=== PATIENT | female | born 1975 | race Two or more races ===

== ENCOUNTER 2016-08-31 11:50 | Emergency (ER) | payer MEDICAID ==
[~2016-08-31] VITALS: Ht 165.1 cm; Wt 95.3 kg
[~2016-08-31 11:50] MED LIST: NAPR-591
[2016-08-31 12:57] VITALS: BP 117/57
[2016-08-31] MEDS ORDERED: KETOROLAC TROMETH 60MG/2ML VIAL IM ONE (13:15)
[2016-08-31] MEDS ORDERED: ONDANSETRON ODT 4 MG TAB PO ONE (13:15)
[2016-08-31] MEDS ORDERED: diphenhdrAMINE HCL 50 MG/1 ML VL IM ONE (13:15)
== END 2016-08-31 14:04 | disposition home or self-care (01) ==
LOC: ER 11:50
DX: G43.909 Migraine, unspecified, not intractable, without status migrainosus (principal); R42 Dizziness and giddiness; Z98.51 Tubal ligation status
CPT/HCPCS: 96372; 99284; J1200; J1885; Q0162

== ENCOUNTER 2020-09-13 19:35 | Emergency (ER) | payer MEDICAID ==
[~2020-09-13] VITALS: Ht 165.1 cm; Wt 99.8 kg
[2020-09-13] MEDS ORDERED: HYDROcodone-ACET 5/325MG TAB PO ONE (22:00)
[2020-09-13 23:00] VITALS: BP 110/63
== END 2020-09-14 00:07 | disposition home or self-care (01) ==
LOC: ER 19:38 → TELE 22:45 → UNDOADMIN 22:45 → ER 09-14 00:07
DX: S80.12XD Contusion of left lower leg, subsequent encounter (principal); W22.8XXD Striking against or struck by other objects, subsequent encounter
CPT/HCPCS: 73700; 93971

== ENCOUNTER 2022-04-19 18:35 | Emergency (ER) | payer MEDICAID ==
[~2022-04-19] VITALS: Ht 165.1 cm; Wt 107.3 kg
[2022-04-19 19:40] LABS: Basophils # (auto) 0.1 10 ^3/uL (0-0.2); Basophils % (auto) 0.9 % (0.0-2.0); Eosinophils # (auto) 0.3 10 ^3/uL (0-0.8); Eosinophils % (auto) 3.7 % (0.0-7.0); Hematocrit 44.1 % (36.0-46.0); Hemoglobin 14.9 g/dL (12.2-16.2); Lymphocytes # (auto) 2.3 10 ^3/uL (0.4-5.4); Lymphocytes % (auto) 29.8 % (10.0-50.0); Mean Corpuscular Hemoglobin 29.2 pg (28.0-32.0); Mean Corpuscular Hgb Conc. 33.7 g/dL (32.0-36.0); Mean Corpuscular Volume 86.7 fL (80.0-100.0); Monocytes # (auto) 0.4 10 ^3/uL (0-1.3); Monocytes % (auto) 5.4 % (0.0-12.0); Neutrophils # (auto) 4.6 10 ^3/uL (1.6-8.6); Neutrophils % (auto) 60.2 % (37.0-80.0); Nucleated Red Blood Cells % 0.1 %; Red Blood Cells 5.09 10^6/uL (4.0-5.20); Red Cell Distribution Width 14.1 % (11.8-14.3); White Blood Cell 7.7 10^3/uL (4.4-10.8)
[2022-04-19] MEDS ORDERED: MECLIZINE HCL 25 MG TAB PO ONE (19:45)
[2022-04-19 19:46] LABS: Albumin 3.5 g/dL (3.4-5.0); BUN/Creatinine Ratio 17.7; Calcium 8.8 mg/dL (8.5-10.1); Potassium 4.2 mmol/L (3.5-5.1)
[2022-04-19 19:49] LABS: Bilirubin, Total 0.3 mg/dL (0.2-1.0); Total Protein 7.3 g/dL (6.4-8.2)
[2022-04-19 22:03] LABS: Urine WBC None Seen /hpf (0 - 5)
[2022-04-19 22:13] LABS: Urine Bacteria NONE SEEN /hpf (None Seen); Urine Blood Negative /uL (Negative); Urine Specific Gravity 1.021 (1.001-1.035)
[2022-04-19] MEDS ORDERED: ONDA-144 PO (22:22)
[2022-04-19] MEDS ORDERED: MECL1TAB42 PO (22:22)
[2022-04-19 22:58] VITALS: BP 126/69
== END 2022-04-19 22:58 | disposition home or self-care (01) ==
LOC: ER 18:35
DX: R42 Dizziness and giddiness (principal); E66.01 Morbid (severe) obesity due to excess calories; Z68.39 Body mass index [BMI] 39.0-39.9, adult; Z98.51 Tubal ligation status
CPT/HCPCS: 36415; 71045; 80053; 81001; 85025; 93005; 99285; J8597

== ENCOUNTER 2024-01-01 19:20 | Emergency (ER) | payer MEDICAID ==
[~2024-01-01] VITALS: Ht 167.6 cm; Wt 110.1 kg
[~2024-01-01 19:20] MED LIST changes: +MECL1TAB42 PO; +ONDA-144 PO
[2024-01-01] MEDS: PROCHLORPERAZINE EDISYLATE 5 MG/ML 2ML VIAL IM ONE (22:07)
[2024-01-01] MEDS: KETOROLAC TROMETH 30 MG/ML 1ML VIAL IM ONE (22:07)
[2024-01-01] MEDS: diphenhdrAMINE HCL 50 MG/1 ML VL IM ONE (22:07)
[2024-01-01] MEDS: DexAMETHasone SOD PHOS 10MG/1ML VIAL INJ IM ONE (22:07)
[2024-01-02 00:19] VITALS: BP 117/70; PULSE 78; RESP 18; TEMP 98.3; O2SAT 96
== END 2024-01-02 00:23 | disposition home or self-care (01) ==
LOC: ER 19:20
DX: G43.909 Migraine, unspecified, not intractable, without status migrainosus (principal); E78.5 Hyperlipidemia, unspecified; Z98.890 Other specified postprocedural states
CPT/HCPCS: 96372; 99284; J0780; J1100; J1200; J1885